=== PATIENT | female | born 1950 | race Caucasian/White ===

== ENCOUNTER → 2017-10-03 | Outpatient (CLI) | payer OTHER, MEDICARE ==
[~2017-10-03] MED LIST: GADOBUTROL 10 ML VIAL IVP ONE
== END ==
LOC: FIMAGING 12:07
PROVIDERS: ATTEND Radiology Diagnostic Radiology
DX: N93.8 Other specified abnormal uterine and vaginal bleeding (principal); D25.0 Submucous leiomyoma of uterus
CPT/HCPCS: 72197; A9585; 82565-PO

== ENCOUNTER 2018-04-04 07:38 | Observation (INO) | payer OTHER, MEDICARE ==
[~2018-04-04 07:38] MED LIST changes: -GADOBUTROL 10 ML VIAL IVP ONE; +NALOXONE HCL 0.4 MG/ML INJ IVP PRN
[2018-04-04] MEDS ORDERED: FLUMAZENIL 0.5 MG/5 ML MDV IVP PRN (07:50)
[2018-04-04] MEDS ORDERED: KETOROLAC 30 MG/1 ML SDV IVP ONE (07:50)
[2018-04-04] MEDS ORDERED: ALTEPLASE 2 MG VIAL IVP PRN (07:50)
[2018-04-04] MEDS ORDERED: NS 1,000 ML IV ONE (07:50)
[2018-04-04] MEDS ORDERED: SCOPOLAMINE HYDROBROMIDE 1 MG/3 DAYS PATCH TD ONE (07:50)
[2018-04-04] MEDS ORDERED: DEXAMETHASONE 10 MG/ML VIAL IVP ONE (07:50)
[2018-04-04] MEDS ORDERED: GLUCAGON HCL 1 MG VIAL IVP PRN (07:50)
[2018-04-04] MEDS ORDERED: PROTAMINE SULFATE 50 MG/5 ML VIAL IVP PRN (07:50)
[2018-04-04] MEDS ORDERED: MEPERIDINE 25 MG/ML SYR IVP PRN (07:50)
[2018-04-04] MEDS ORDERED: HEPARIN 10,000 UNIT/10 ML MDV (1,000 UNIT/ML) IVP PRN (07:50)
[2018-04-04] MEDS ORDERED: MIDAZOLAM 2 MG/2 ML VIAL IVP PRN (07:50)
[2018-04-04] MEDS ORDERED: NALOXONE HCL 0.4 MG/ML INJ IVP PRN (07:50)
[2018-04-04] MEDS ORDERED: fentaNYL 100 MCG/2 ML INJ IVP PRN (07:50)
[2018-04-04] MEDS ORDERED: DEXMEDETOMIDINE HCL 200 MCG in NS 50 ML IV ONE (08:00)
[2018-04-04] MEDS ORDERED: KETOROLAC 15 MG/1 ML SDV ONE (08:31)
[2018-04-04] MEDS ORDERED: KETOROLAC 30 MG/1 ML SDV ONE (08:36)
[2018-04-04 08:37] LABS: PLATELET COUNT 272 10^3/uL (150-400)
[2018-04-04 08:41] LABS: INR 0.95 (0.83-1.16); PROTIME(PATIENT) 12.9 SEC (12.0-15.0)
[2018-04-04] MEDS: HYDROmorphONE/DILAUDID 6 MG/30 ML PCA IV PRN ×3 (08:45→17:50)
[2018-04-04] MEDS ORDERED: IOPAMIDOL (ISOVUE-300) 100 ML BTL ONE ×2 (10:34→10:52)
[2018-04-04] MEDS ORDERED: MIDAZOLAM 2 MG/2 ML VIAL ONE (11:12)
[2018-04-04] MEDS ORDERED: fentaNYL 100 MCG/2 ML INJ ONE (11:13)
[2018-04-04] MEDS ORDERED: NS 1,000 ML IV SCH (11:30)
[2018-04-04] MEDS ORDERED: POLYETHYLENE GLYCOL 3350 17 GM PKT PO PRN (11:30)
[2018-04-04] MEDS ORDERED: LACTULOSE 20 GM/30 ML UDCUP PO PRN (11:30)
[2018-04-04] MEDS ORDERED: BISACODYL 10 MG SUPP PR PRN (11:30)
[2018-04-04] MEDS ORDERED: MAGNESIUM HYDROXIDE 30 ML UDCUP PO PRN (11:30)
[2018-04-04] MEDS ORDERED: PROMETHAZINE HCL 25 MG/ML INJ IVP PRN (11:30)
[2018-04-04] MEDS ORDERED: ONDANSETRON 4 MG/2 ML VIAL IVP PRN (11:30)
--- NOTE | 2018-04-04 11:38 | PDPROPOC ---
Sedation Plan of Care Sedation Plan of Care: vital signs stable, mental status noted, patient educated of risks, benefits, alternatives, patient can tolerate sedation ASA Classification: ASA 2 Planned drugs: fentanyl, midazolam Mallampati Score: Class 1 Mallampati Reference Image: Patient passed 3-3-2 rule?: Yes
--- NOTE | 2018-04-04 11:38 | PDGENHP ---
History & Physical Chief Complaint: SYMPTOMATIC UTERINE FIBROIDS History of Present Illness: DYSMENORRHEA, URINARY FREQUENCY Pertinent Past, Social, Family History: NON SMOKER Relevant Physical Exam: LARGE UTERINE BULGE. NO PAIN. Cardiorespiratory Assessment: RRR, CTA
--- NOTE | 2018-04-04 11:39 | PDRADPN ---
Radiology Procedure Note Date of Procedure: 04/04/18 Radiologist: Jelena Arceo Anesthesia: IV Sedation Pre-op Diagnosis: UTERINE FIBROIDS Post-op Diagnosis: SAME Indication: DYSMENORRHEA. URINARY URGENCY Procedure: UFE Finding(s): LARGE UTERINE FIBROIDS Inf/Abcess present in the surg proc area at time of surgery?: No
[2018-04-04] MEDS: KETOROLAC 30 MG/1 ML SDV IVP SCH ×2 (14:36→21:32)
[2018-04-04] MEDS ORDERED: oxyCODONE IR 5 MG TAB PO PRN (19:20)
[2018-04-04] MEDS ORDERED: SENNOSIDES 17.6 MG/10 ML UDL PO SCH (21:00)
[2018-04-04] MEDS: SENNOSIDES/DOCUSATE SODIUM TAB PO SCH (21:33)
[2018-04-05] MEDS: KETOROLAC 30 MG/1 ML SDV IVP SCH (05:08)
[2018-04-05] MEDS ORDERED: levOFLOXACIN 500 MG/DEXTROSE 100 ML IV ONE (09:00)
[2018-04-05] MEDS: SENNOSIDES/DOCUSATE SODIUM TAB PO SCH ×2 (10:55→16:49)
[2018-04-05] MEDS ORDERED: IBUPROFEN 600 MG TAB PO SCH (12:00)
[2018-04-05 13:12] VITALS: BP 95/62
--- NOTE | 2018-04-05 16:12 | SOAPPROG ---
SOAP Progress Note Assessment/Plan: Assessment: DOING WELL. D/C HOME TODAY. PATIENT IS LOOKING FOR A RIDE. Plan: D/C HOME WHEN RIDE ARRIVES. 04/05/18 16:12 Subjective: DOING WELL. MARTIN OUT. URINATED NATURALLY. NO PAIN. Objective: Vital Signs Temp Pulse Resp BP Pulse Ox 36.1 C 64 16 95/62 L 95 04/05/18 13:11 04/05/18 13:11 04/05/18 13:11 04/05/18 13:11 04/05/18 10:39 Laboratory Results 04/04/18 08:25 04/04/18 07:51 04/04/18 04/05/18 04/06/18 05:59 05:59 05:59 Intake Total 900 Output Total 925 450 Balance -25 -450 PT 12.9 SEC (12.0-15.0) 04/04/18 08:25 INR 0.95 (0.83-1.16) 04/04/18 08:25 RT GROIN WITHOUT HEMATOMA OR BRUISING - Pending Discharge Pending Discharge Within 24 Hours: Yes Pending Discharge Date: 04/06/18 Pending Discharge Time: 11:00 ICD10 Worksheet Patient Problems: Problems Problem Status Onset Uterine fibroid Acute - ICD10 Problem Qualifiers (1) Uterine fibroid
--- NOTE | 2018-04-06 16:25 | GDS ---
ADMISSION DIAGNOSIS: Symptomatic uterine fibroids. DISCHARGE DIAGNOSIS: Symptomatic uterine fibroids. PROCEDURE: 04/04/2018, uterine artery embolization. HOSPITAL COURSE: There was initial trouble with tolerating STRE[employer] pump on Dilaudid, contributing to buffy sea, significant vomiting overnight and dizziness. All subsided with Zofran and subsequent removal o f the STREET [employer] pump. The patient took very little oral pain medications and had little discomfort. Torad ol and ibuprofen were her primary medications that helped. The patient was discharged home in stable condition. DISCHARGE MEDICATION: Oxycodone, 5 mg tablets, 1 to 2 q. 4 hours p.r.n. pain for breakthrough pain, dispense #20. Resume all previous outpatient medications. FOLLOWUP: Interventional Radiology will call the patient for routine followup. /[id number]/MODL
== END 2018-04-05 17:00 | disposition home or self-care (01) ==
LOC: FIMAGING 07:38 → F3E 11:33 → FOB 13:00
PROVIDERS: ADMIT Radiology Diagnostic Radiology; ATTEND Radiology Diagnostic Radiology
DX: D25.9 Leiomyoma of uterus, unspecified (principal); N94.6 Dysmenorrhea, unspecified
CPT/HCPCS: 36246; 37242; 75736; 76937; 99153; C1760; C1769; C1894; J1100; J1170; J1644; J1885; J1956; J2250; J2405; J2550; J3010; Q9967; J2310

== ENCOUNTER → 2018-08-20 | Outpatient (CLI) | payer OTHER, MEDICARE | LOC: FIMAGING 14:42 | PROVIDERS: ATTEND Radiology Diagnostic Radiology | DX: Z09 Encounter for follow-up examination after completed treatment for conditions other than malignant neoplasm (principal); D25.9 Leiomyoma of uterus, unspecified; Z98.890 Other specified postprocedural states ==